=== PATIENT | male | born 1970 | race Hispanic/Latino ===

== ENCOUNTER 2020-06-12 13:05 | Outpatient (CLI) | payer OTHER ==
--- NOTE | 2020-06-12 13:45 | RAD ---
2 views of the abdomen: 06/12/2020 HISTORY: Right upper quadrant pain FINDINGS: Body habitus limits detailed assessment. There is significant stool seen within the colon. The bowel gas pattern appears nonobstructed. The lateral aspect of the abdomen is not fully imaged bilaterally secondary to body habitus. IMPRESSION: Limited evaluation of the abdomen demonstrating significant stool within the colon. No ev idence for small bowel obstruction.
--- NOTE | 2020-06-12 13:46 | RAD ---
EXAM: Chest PA and lateral: HISTORY: Right upper quadrant pain COMPARISON: None FINDINGS: Heart size:Within normal limits. Lungs:Clear of acute process. No confluent pneumonia, overt edema, pleural effusion, or other acute process. IMPRESSION: No significant acute intrathoracic disease.
--- NOTE | 2020-06-12 13:47 | RAD ---
3 views of the right RIBS: 06/12/2020 HISTORY: Right upper quadrant pain FINDINGS: There is a questionable nondisplaced inferior lateral right 10th rib fracture. Correlation for point tenderness in this region is advised. IMPRESSION: Findings suspicious for a possible nondisplaced inferior lateral right 10th rib fracture.
== END 2020-06-12 13:06 | disposition home or self-care (01) ==
LOC: BICRAD 13:05
DX: R10.11 Right upper quadrant pain (principal); R19.5 Other fecal abnormalities
CPT/HCPCS: 71046; 74019